=== PATIENT | male | born 1985 ===

== ENCOUNTER 2018-08-28 23:57 | Emergency (ER) | payer SELFPAY ==
[~2018-08-28] VITALS: Ht 175.3 cm; Wt 72.6 kg
== END 2018-08-29 05:01 | disposition home or self-care (01) ==
LOC: ER 23:57
DX: S01.311A Laceration without foreign body of right ear, initial encounter (principal); S00.81XA Abrasion of other part of head, initial encounter; S80.212A Abrasion, left knee, initial encounter; S80.211A Abrasion, right knee, initial encounter; S80.812A Abrasion, left lower leg, initial encounter; S80.811A Abrasion, right lower leg, initial encounter; R45.1 Restlessness and agitation; V03.90XA Pedestrian on foot injured in collision with car, pick-up truck or van, unspecified whether traffic or nontraffic accident, initial encounter
CPT/HCPCS: 70450; 99284-25